=== PATIENT | male | born 1955 | race Caucasian/White ===

== ENCOUNTER 2022-02-11 19:02 | Emergency (ER) | payer MEDICARE ==
[~2022-02-11] VITALS: Ht 177 cm; Wt 80.7 kg
[2022-02-11] MEDS ORDERED: fentaNYL INJ 100 MCG/2 ML AMP IVP STA ×2 (19:16→19:36)
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
[2022-02-11 19:29] LABS: BASOPHILS # (AUTO) 0.1 10^3/uL (0.0-0.1); BASOPHILS % (AUTO) 0 % (0-10); EOSINOPHILS % (AUTO) 0 % (0-10); HEMATOCRIT 52 % (40-54); HEMOGLOBIN 16.9 g/dL (13.3-17.7); LYMPHOCYTES # (AUTO) 0.9 10^3/uL (1.0-4.0); LYMPHOCYTES % (AUTO) 5 % (12-44); MEAN CORPUSCULAR HEMOGLOBIN 28 pg (25-34); MEAN CORPUSCULAR HGB CONC 33 g/dL (32-36); MEAN CORPUSCULAR VOLUME 86 fL (80-99); MEAN PLATELET VOLUME 8.4 fL (9.0-12.2); MONOCYTES # (AUTO) 1.2 10^3/uL (0.0-1.0); MONOCYTES % (AUTO) 6 % (0-12); NEUTROPHILS # (AUTO) 17.5 10^3/uL (1.8-7.8); NEUTROPHILS % (AUTO) 89 % (42-75); PLATELET COUNT 319 10^3/uL (130-400); WHITE BLOOD COUNT 19.6 10^3/uL (4.3-11.0)
[2022-02-11] MEDS ORDERED: LACTATED RINGERS 1,000 ML IV ONE ×2 (19:30→20:15)
[2022-02-11 19:40] LABS: INR 0.9 (0.8-1.4); PROTHROMBIN TIME PATIENT 12.7 SEC (12.2-14.7)
[2022-02-11 19:45] LABS: LYMPHOCYTES % (MANUAL) 6 %; MONOCYTES % (MANUAL) 11 %; NEUTROPHILS % (MANUAL) 83 %; RBC MORPH NORMAL
[2022-02-11 19:47] LABS: ALBUMIN 4.2 GM/DL (3.2-4.5); BILIRUBIN,TOTAL 0.9 MG/DL (0.1-1.0); CALCIUM 9.2 MG/DL (8.5-10.1); CREATININE SERUM 1.19 MG/DL (0.60-1.30); TOTAL PROTEIN 7.9 GM/DL (6.4-8.2)
[2022-02-11] MEDS ORDERED: HOLD METFORMIN - RECEIVED CONTRAST 20 ML VIAL IV SCH (20:00)
[2022-02-11] MEDS ORDERED: IOHEXOL 350 MG/ML 100 ML (OMNIPAQUE 350) VIAL IV ONE (20:00)
--- NOTE | 2022-02-11 20:47 | Diagnostic Imaging Report ---
PROCEDURE: US scrotum. TECHNIQUE: Multiple real-time grayscale images were obtained over the scrotum in various projections, bilaterally. INDICATION: Right testicular injury. FINDINGS: The right testicle measures 2.6 x 0.9 x 2.1 cm. The left testicle measures 5.0 x 2.4 x 3.8 cm. Both testicles demonstrate homogeneous echogenicity and normal blood flow. Right testicle does appear to be located cephalad into the inguinal canal. There is normal blood flow. Right epididymis was not visualized. Left epididymis is somewhat heterogeneous. There are small bilateral hydroceles. There are no varicoceles. IMPRESSION: 1. No evidence of discrete testicular mass or torsion. 2. Somewhat heterogeneous appearance of the left epididymis. This is nonspecific; however, epididymitis cannot be excluded. Recommend clinical correlation. Dictated by: Dictated on workstation # [id number]
--- NOTE | 2022-02-11 20:55 | Diagnostic Imaging Report ---
PROCEDURE: CT abdomen and pelvis with contrast. TECHNIQUE: Multiple contiguous axial images were obtained through the abdomen and pelvis after administration of intravenous contrast. Auto Exposure Controls were utilized during the CT exam to meet ALARA standards for radiation dose reduction. All CT scans use one or more of the following dose optimizing techniques: automated exposure control, MA and/or KvP adjustment based on patient size and exam type or iterative reconstruction. INDICATION: Abdominal trauma. FINDINGS: The heart size is normal. The lung bases are clear. There is fatty infiltration of the liver. Gallbladder is unremarkable. There is no biliary ductal dilatation. Spleen is normal. Pancreas and adrenal glands are unremarkable. The kidneys are normal in appearance. There is a left renal cyst. The aorta is nonaneurysmal. The bowel gas pattern is nonspecific. The bladder is normal. There is no pelvic mass, adenopathy or free fluid. There are mild degenerative changes in the spine. There is no fracture or traumatic subluxation. IMPRESSION: 1. Fatty infiltration of the liver. 2. No other acute abnormality in the abdomen or pelvis. 3. Degenerative changes in the spine. Dictated by: Dictated on workstation # [id number]
[2022-02-11] MEDS ORDERED: RX-NAPROXEN (NAPROSYN) 250 MG TAB PPK#4 PO STA (21:00)
[2022-02-11] MEDS ORDERED: NAPR500T8 PO (21:05)
[2022-02-11] MEDS ORDERED: TRAM-42 PO (21:05)
[2022-02-11 21:19] LABS: BILIRUBIN,URINE NEGATIVE (NEGATIVE); CLARITY,URINE CLEAR; COLOR,URINE YELLOW; GLUCOSE, URINE (UA) NEGATIVE (NEGATIVE); KETONES,URINE NEGATIVE (NEGATIVE); LEUKOCYTE ESTERASE ,URINE NEGATIVE (NEGATIVE); NITRITE,URINE NEGATIVE (NEGATIVE); PROTEIN,URINE NEGATIVE (NEGATIVE)
[2022-02-11 21:27] LABS: BACTERIA,URINE NEGATIVE /HPF; WBC,URINE 0-2 /HPF
[2022-02-11 21:30] LABS: AMPHETAMINE SCREEN, URINE NEGATIVE (NEGATIVE); BARBITURATE SCREEN URINE NEGATIVE (NEGATIVE); BENZODIAZEPINES SCREEN URINE NEGATIVE (NEGATIVE); CANNABINOID SCREEN, URINE NEGATIVE (NEGATIVE); COCAINE SCREEN URINE NEGATIVE (NEGATIVE); METHADONE STAT NEGATIVE (NEGATIVE); OPIATE SCREEN URINE NEGATIVE (NEGATIVE); OXYCODONE STAT NEGATIVE (NEGATIVE); PROPOXYPHENE STAT NEGATIVE (NEGATIVE); TRICYCLIC ANTIDEPRESSANTS SCRE NEGATIVE (NEGATIVE)
[2022-02-11 21:40] VITALS: BP 171/90
== END 2022-02-11 21:40 | disposition home or self-care (01) ==
LOC: ER 19:04
DX: S30.22XA Contusion of scrotum and testes, initial encounter (principal); Z87.891 Personal history of nicotine dependence; W01.198A Fall on same level from slipping, tripping and stumbling with subsequent striking against other object, initial encounter; Y92.009 Unspecified place in unspecified non-institutional (private) residence as the place of occurrence of the external cause
CPT/HCPCS: 36415; 74177; 76870; 80053; 80306; 81000; 85007; 85027; 85610; 85730

== ENCOUNTER 2022-02-12 09:58 | Emergency (ER) | payer MEDICARE ==
[~2022-02-12] VITALS: Ht 177 cm; Wt 81.0 kg
[~2022-02-12 09:58] MED LIST: NAPR500T8 PO; TRAM-42 PO
[2022-02-12] MEDS ORDERED: fentaNYL INJ 100 MCG/2 ML AMP ONE (10:07)
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
[2022-02-12 10:14] LABS: BASOPHILS # (AUTO) 0.1 10^3/uL (0.0-0.1); BASOPHILS % (AUTO) 0 % (0-10); EOSINOPHILS % (AUTO) 0 % (0-10); HEMATOCRIT 49 % (40-54); HEMOGLOBIN 15.8 g/dL (13.3-17.7); LYMPHOCYTES # (AUTO) 2.2 10^3/uL (1.0-4.0); LYMPHOCYTES % (AUTO) 10 % (12-44); MEAN CORPUSCULAR HEMOGLOBIN 28 pg (25-34); MEAN CORPUSCULAR HGB CONC 33 g/dL (32-36); MEAN CORPUSCULAR VOLUME 86 fL (80-99); MEAN PLATELET VOLUME 8.7 fL (9.0-12.2); MONOCYTES # (AUTO) 1.8 10^3/uL (0.0-1.0); MONOCYTES % (AUTO) 8 % (0-12); NEUTROPHILS # (AUTO) 17.1 10^3/uL (1.8-7.8); NEUTROPHILS % (AUTO) 80 % (42-75); PLATELET COUNT 307 10^3/uL (130-400); WHITE BLOOD COUNT 21.3 10^3/uL (4.3-11.0)
[2022-02-12] MEDS ORDERED: fentaNYL INJ 100 MCG/2 ML AMP IVP ONE (10:15)
[2022-02-12] MEDS ORDERED: NS IV 1000 ML 1,000 ML IV SCH (10:15)
[2022-02-12 10:30] LABS: ALBUMIN 4.1 GM/DL (3.2-4.5); POTASSIUM 3.2 MMOL/L (3.6-5.0)
[2022-02-12 10:31] LABS: CALCIUM 9.1 MG/DL (8.5-10.1); LYMPHOCYTES % (MANUAL) 11 %; MONOCYTES % (MANUAL) 11 %; NEUTROPHILS % (MANUAL) 78 %; RBC MORPH NORMAL
[2022-02-12 10:33] LABS: TOTAL PROTEIN 7.5 GM/DL (6.4-8.2)
[2022-02-12 10:34] LABS: BILIRUBIN,TOTAL 1.2 MG/DL (0.1-1.0)
[2022-02-12 10:36] LABS: CREATININE SERUM 1.16 MG/DL (0.60-1.30)
[2022-02-12] MEDS ORDERED: HYDROmorphone 2 MG/ML VIAL (DILAUDID) IVP ONE ×2 (10:45→12:15)
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
[2022-02-12] MEDS ORDERED: HYDROmorphone 2 MG/ML VIAL (DILAUDID) ONE (12:04)
[2022-02-12] MEDS ORDERED: LORazepam INJ 2 MG/ML (ATIVAN) VIAL ONE (12:06)
[2022-02-12] MEDS ORDERED: LORazepam INJ 2 MG/ML (ATIVAN) VIAL IVP ONE (12:15)
[2022-02-12 13:05] VITALS: BP 168/103
[2022-02-12] MEDS ORDERED: ONDANSETRON 4 MG/2 ML (SDV) Z0FRAN ONE (13:16)
== END 2022-02-12 13:20 | disposition short-term general hospital (02) ==
LOC: EDUNIT# 09:58 → ER 09:59
DX: N44.00 Torsion of testis, unspecified (principal); W18.30XA Fall on same level, unspecified, initial encounter
CPT/HCPCS: 36415; 76870; 80053; 85007; 85027; 86141; 87636

== ENCOUNTER → 2022-10-18 | Outpatient (CLI) | payer MEDICARE, SELFPAY ==
--- NOTE | 2022-10-18 09:28 | Diagnostic Imaging Report ---
EXAMINATION: CT calcium scoring without contrast. TECHNIQUE: Multiple contiguous axial images were obtained through the chest without the use of intravenous contrast for purposes of calcium scoring. All CT scans use one or more of the following dose optimizing techniques: automated exposure control, MA and/or KvP adjustment based on patient size and exam type or iterative reconstruction. HISTORY: HYPERLIPIDEMIA COMPARISON: None available. FINDINGS: The calculated coronary artery calcium score is 246. Heart size is normal. No pericardial effusion. Aorta is normal in caliber. No lymphadenopathy is seen. Visualized portions of the lungs are clear. No osseus lesions are seen. IMPRESSION: 1. Calculated coronary artery calcium score of 246. Dictated by: Dictated on workstation # [id number]
== END ==
LOC: RAD FS 08:56
PROVIDERS: ATTEND Family Medicine
DX: E78.5 Hyperlipidemia, unspecified (principal)
CPT/HCPCS: 75571